=== PATIENT | male | born 1985 | race Caucasian/White ===

== ENCOUNTER 2017-03-25 15:01 | Emergency (ER) | payer BC ==
[~2017-03-25] VITALS: Ht 175.3 cm; Wt 86.2 kg
[2017-03-25 15:03] VITALS: TEMP 36.7; Ht 175.3 cm; Wt 86.2 kg
--- NOTE | 2017-03-25 15:49 | DIAGNOSTIC IMAGING REPORT ---
LEFT FOOT MIN 3 VIEWS ROUTINE HISTORY: 31 years-old Male acute left-sided foot pain without reported trauma COMPARISON: None available TECHNIQUE: 3 views of the right foot FINDINGS: Mid foot alignment is anatomic. There is no acute fracture, dislocation or significant degenerative changes. Note is made of an os trigonum. There is mild soft tissue swelling of the ankle. No evidence of stress fracture. No radiopaque foreign body. IMPRESSION: Mild ankle soft tissue swelling without acute fracture or dislocation. The above report was generated using voice recognition software. It may contain grammatical, syntax or spelling errors. Electronically signed by: Brian French M.D. 03/25/2017 3:48 PM Dictated Date/Time: 03/25/2017 3:46 PM
[2017-03-25] MEDS ORDERED: PRED20TA2 PO (16:13)
[2017-03-25 16:26] VITALS: BP 118/79; PULSE 62; O2SAT 98
--- NOTE | 2017-03-26 00:05 | EMERGENCY ROOM VISIT NOTE ---
ED Visit Note First contact with patient: 15:09 Chief Complaint: Right foot pain. History of Present Illness: Mr. Wilson is a 31-year-old white male who ambulates into the ED accompanied by female friend complaining of right foot pain over the medial aspect of the foot and extending into the great toe. Currently patient denies any previous significant injuries or trauma. He does report he bought a new work boots a couple months ago. Patient reports over the last 2 weeks he has been having pain along the course of the extensor hallux longus longus tendon of the right foot. He has multiple descriptors of his pain from sharp and achy and throbbing depending on the activity he is doing. He feels it is more strong in the morning and gradually decreases throughout the day. He rates his discomfort 6/10 at the most severe. Weightbearing and ambulation increases his discomfort. Rest decreases his discomfort. He denies any associated symptoms including lower leg pain, ankle pain, foot weakness/numbness/tingling. Additionally he denies fevers, chills, sweats, skin eruptions, skin color changes. Review of Systems: As noted above in history of present illness. 5 body systems were reviewed and found to be negative as noted above. Past Medical History: Status post cholecystectomy. Current Medications: Patient denies. Allergies to Medications: Patient denies. Social History: Patient is currently employed; he feels safe in his home environment; he admits to tobacco and alcohol use. Physical Examination: Vital Signs: Date Time Temp Pulse Resp B/P (MAP) Pulse Ox O2 Delivery O2 Flow Rate FiO2 03/25/17 16:26 62 16 118/79 98 03/25/17 15:03 36.7 79 17 142/92 98 Room Air GENERAL: 31-year-old male in mild distress due to pain, nontoxic-appearing, afebrile and hemodynamically stable. NEUROLOGICAL: Awake, alert and oriented to person, place and time. Answering questions appropriately and following commands. SKIN: Warm, dry and pink. No soft tissue eruptions or trauma noted. RIGHT LOWER EXTREMITY: No gross bony deformity. No tenderness in the knee or calf. No calf tenderness or cords. Moderate tenderness over the extensor hallucis longus tendon starting just anterior to the ankle and extending down to the great toe. There is no local erythema or edema. No tenderness through the ankle. No ligamentous laxity. Full range of motion in all movements of the great toe against resistance but an increase in pain predominantly with extension and abduction. No ligamentous laxity of the first MTP and interphalangeal joints. Throughout the foot and great toe the skin was warm and pink and capillary refill is brisk. He was able to distinguish light sensations to all dermatomes. ED Course: Patient is assessed as noted above. Patient's medication list was reviewed. Right Foot X-Rays: Were read by myself and the radiologist and shows no acute fractures or dislocations. Radiologist notes mild swelling at the level of the ankle. Patient was offered pain medications and refused. Patient was placed in a postop shoe and on nonweightbearing crutches. Patient was educated about today's findings and instructed on his treatment plan ; he verbalizes understanding and agreement with this plan. Clinical Impression: Tendinitis of the right foot. Decision-Making: Initially my differential diagnosis I considered tendinitis, fracture, ligamentous sprain, muscle strain, dislocation and other causes. Disposition: Patient discharged home in stable condition accompanied by female friends; prior to departure he was reassessed and subjectively reported he was feeling the same. Plan: Comfort measures including rest, ice, postop shoe and crutch use, foot elevation , alternating ibuprofen and acetaminophen and a prescription for prednisone were discussed with the patient. Patient was encouraged to follow-up with orthopedics if no better in 7-10 days. Patient was encouraged return ED for worsening/uncontrolled pain, uncontrolled swelling, foot redness/swelling, fevers or any new/concerning symptoms.
== END 2017-03-25 16:27 | disposition home or self-care (01) ==
LOC: C.EDB 15:04 → C.EDD 16:27
DX: M77.9 Enthesopathy, unspecified (principal); F17.200 Nicotine dependence, unspecified, uncomplicated

== ENCOUNTER 2017-04-07 18:15 | Emergency (ER) | payer BC ==
[~2017-04-07] VITALS: Ht 175.3 cm; Wt 84.3 kg
[~2017-04-07 18:15] MED LIST: PRED20TA2 PO
[2017-04-07 18:18] VITALS: TEMP 36.9; Ht 175.3 cm; Wt 84.3 kg
[2017-04-07] MEDS ORDERED: NORCO 5/325MG HOME PACK PO STA (18:43)
[2017-04-07] MEDS ORDERED: HYDR-5688 PO (18:44)
--- NOTE | 2017-04-07 18:46 | EMERGENCY ROOM VISIT NOTE ---
History First contact with patient: 18:34 Chief Complaint: FOOT PAIN Stated Complaint: RT FOOT PAIN History of Present Illness The patient is a 31 year old male who presents to the Emergency Room via private vehicle with complaints of "right foot pain". The patient states that he was seen here on March 27 and diagnosed with tendinitis. He was given a walking boot, and crutches and has been utilizing nonweightbearing. He has been elevating his foot and using ice. He has been taking the prednisone. He states that the pain went away, however has returned this morning. He denies any new injury. He notes the prednisone has been upsetting his stomach and is here wondering if there is another medication that he can take. He rates the overall pain is a 2/10 at this time, but notes that it at times will acutely worsened. He denies any fevers or chills. He has been taking ibuprofen without relief. Review of Systems A complete 6-point Review of Systems was discussed with the patient, with pertinent positives and negatives listed in the History of Present Illness. All remaining Review of Systems questions can be considered negative unless otherwise specified. Past Medical/Surgical History No pertinent. Family History No pertinent. Social History Smoking Status: Current Every Day Smoker Patient is currently employed, and lives locally. Current/Historical Medications Scheduled PRN Hydrocodone/Acetaminophen 5MG/325MG ([place] 5MG/325MG), 1-2 TABLET PO Q6 PRN for Pain Physical Exam Vital Signs Date Time Temp Pulse Resp B/P (MAP) Pulse Ox O2 Delivery O2 Flow Rate FiO2 04/07/17 18:56 71 19 137/87 96 04/07/17 18:18 36.9 96 20 141/79 99 Room Air Physical Exam VITAL SIGNS - Vital signs and nursing notes were reviewed. Afebrile, hypertensive 141/79, non-tachycardic and is saturating well on room air 99%. GENERAL -31-year-old male appearing his stated age who is in no acute distress. Communicates well with provider and answers questions appropriately. SKIN - Without rashes. Skin overlying the foot is unremarkable. Right foot is unremarkable. HEAD - NC/AT. EXTREMITIES - No clubbing or peripheral cyanosis. No pretibial edema present. + 5/5 strength noted in UE/LE bilaterally. Slight tenderness to the anterior portion of the right foot. No bony deformity. He is neurovascularly intact in this region. Medical Decision & Procedures Medications Administered Medications (Trade) Dose Ordered Sig/Margaret Route Start Time Stop Time Status Last Admin Dose Admin Acetaminophen/ Hydrocodone Bitart ([place] 5/325mg Home [facility]) [address] [facility] PO 04/07/17 18:43 04/07/17 18:44 DC 04/07/17 18:43 1 [facility] Medical Decision Patient was seen and evaluated as above. After obtaining a thorough history and physical examination previous visit was reviewed. I do not believe that re- x-ray as necessary. There is been no new trauma. His examination is consistent with that of likely tendinitis. He was recommended to be nonweightbearing with crutches he is previously provided, and the walking boot. I did check him in the [place] drug monitoring system, and no red flags were identified. I will recommend a short course of pain medication for what is not relieved by ibuprofen. He is to follow-up with his family doctor. He was educated upon worrisome symptoms which to return, had questions prior discharge, and was discharged home with female driving in good condition. In the evaluation and treatment of this patient, the following differential diagnoses were considered: Lisfranc Fracture, Talus Fracture, Tarsal Fracture, Foot Sprain. Impression Primary Impression: Foot pain Departure Information Dispostion Home / Self-Care Condition GOOD Prescriptions Hydrocodone/Acetaminophen 5MG/325MG ([place] 5MG/325MG) Tab 1-2 TABLET PO Q6 Y for Pain, #15 TAB For Initial Treatment Prov: Misbah Greer PA-C 04/07/17 Referrals No Doctor, Assigned (PCP) Patient Instructions My [facility] Additional Instructions You have been treated in the Emergency Department for foot pain. You have received pain medicine in the emergency department which impairs your ability to operate a vehicle. It is illegal for you to drive after receiving these medicines. You have been prescribed NORCO to be used for pain control. This is a narcotic medication. You cannot drive or consume alcohol while on this medicine. This medicine should only be used for pain that cannot be controlled with over-the- counter pain medicines. For pain control, you can use the following [id number] medicines (if >12 yo): - Regular strength (325mg/tab) Tylenol (acetaminophen) 2 tabs every 4-6 hours as needed. Do not exceed 12 tablets in a 24 hour period. Avoid taking more than 3 grams (3000 mg) of Tylenol per day. This includes any other sources of acetaminophen you may take on a regular basis. NO NORCO WITH THIS!! - Regular strength (200 mg/tab) Advil (ibuprofen) 1-2 tabs every 4-6 hours as needed. Do not exceed a dose of 3200 mg per day. If this is a recent injury (<24 hrs), ice can be applied to the area of pain for the first 3 days to help decrease pain and inflammation. Please follow up with family doctor. Use the crutches you have been provided to keep ALL weight off of the ankle until weight bearing is tolerable. Return to the Emergency Department if your current symptoms worsen despite treatment course outlined above, or if you develop any of the following symptoms : intractable pain despite aforementioned treatment course or new onset of numbness or tingling of the foot. Please return to the emergency department with a new/concerning symptoms.
[2017-04-07 18:56] VITALS: BP 137/87; PULSE 71; O2SAT 96
== END 2017-04-07 18:58 | disposition home or self-care (01) ==
LOC: C.EDB 18:16 → C.EDD 18:58
DX: M79.671 Pain in right foot (principal); F17.210 Nicotine dependence, cigarettes, uncomplicated